=== PATIENT | male | born 1955 ===

== ENCOUNTER → 2022-06-29 | Day surgery (SDC) | payer MEDICARE, OTHER ==
[~2022-06-29] MED LIST: ASPIRIN EC81 MG PO; CELECOXIB200 MG PO; ESOMEPRAZOLE MA40 MG PO; GABAPENTIN600 MG PO; HYDROCODON-ACE1 EAC6 PO; LISINOPRIL5 MG PO; OZEMPIC0.25 MG/0. SQ; TOPIRAMATE50 MG PO; TYLENOL EXTRA500 M1 PO; UBRELVY100 MG PO
== END | disposition home or self-care (01) ==
LOC: OR 05:54
DX: R19.5 Other fecal abnormalities (principal); I10 Essential (primary) hypertension; K21.9 Gastro-esophageal reflux disease without esophagitis; Z86.010 Personal history of colon polyps; Z79.82 Long term (current) use of aspirin; Z79.899 Other long term (current) drug therapy
CPT/HCPCS: 82962; J2704